=== PATIENT | female | born 1940 | race Caucasian/White ===

== ENCOUNTER → 2017-11-29 | Day surgery (SDC) | payer OTHER, MEDICARE ==
[~2017-11-29] VITALS: Ht 154.9 cm; Wt 78.5 kg
--- NOTE | 2017-11-29 13:06 | Operative Report ---
Operative/Inv Procedure Report Surgery Date: 11/29/17 Name of Procedure: Cystoscopy and transurethral resection of bladder tumor Pre-Operative Diagnosis: Bladder tumor Post-Operative Diagnosis: Same Estimated Blood Loss: scant Surgeon/Environmental Remediation Engineer: Flo Calderon MD Anesthesia: general endotracheal tube Drains: 22 Azeri Mendez Specimens: Urine culture and bladder tumor chips Complications: None Condition: Stable Operative Indication: Large bladder tumor seen on workup for hematuria Operative/Procedure Note Note: The patient was taken to the cystoscopy room and identified. She was placed in the supine position on the cystoscopy table. A timeout was executed appropriately with the patient awake. General anesthesia was induced via an endotracheal tube. She was then placed in dorsal lithotomy position. Bimanual pelvic exam did not reveal any abnormal pelvic masses. She was then prepped and draped in usual fashion for cystoscopy. Surgical pause was executed appropriately. A 22 Azeri cystoscope sheath was placed into the bladder. Urine was collected for culture. Cystoscopy was performed. There was a 4 cm bladder tumor just lateral to the left ureteral orifice. There was one satellite lesion just distal to this. The remainder of the bladder was free of tumors or stones. The ureteral orifices were both normal in location and appearance. This point the bladder was left full and the cystoscope removed. The bladder using the obturator. The working element was inserted. Bladder tumor in the satellite lesion was then resected completely. The [employer] evacuator was used to remove all bladder tumor chips from the bladder. At this point there was no visible remaining bladder tumor. Was no significant bleeding noted from the bed of the bladder tumor resection. The rollerball was then used to cauterize the entire area of the resection. No significant bleeding was noted. The bladder was left full and this resectoscope removed. A 22 Azeri Mendez catheter was placed with clear drainage. Findings: 4 cm bladder tumor just lateral to the left ureteral orifice with one satellite lesion approximately 1 cm in size distal to the Cj tumor Discharge Disposition: PACU
== END ==
LOC: STS 02:16
DX: C67.8 Malignant neoplasm of overlapping sites of bladder (principal); J44.9 Chronic obstructive pulmonary disease, unspecified; Z87.891 Personal history of nicotine dependence; I10 Essential (primary) hypertension; R31.0 Gross hematuria
CPT/HCPCS: 87086; J0131; J0690; J2250; J3490